=== PATIENT | male | born 1990 ===

== ENCOUNTER 2020-10-18 10:44 | Emergency (ER) | payer OTHER, SELFPAY ==
[2020-10-18] VITALS (14 sets, daily range): BP systolic 172–209; BP diastolic 100–142; PULSE 85–95; RESP 13–25; TEMP 36.6; O2SAT 95–99; BMI 34.4
--- NOTE | 2020-10-18 11:15 | DI.RAD.S_ITS ---
PROCEDURE: XR CHEST 1V INDICATIONS: chest pain TECHNIQUE: One view of the chest was acquired. COMPARISON: None. FINDINGS: Surgical changes and devices: None. Lungs and pleura: Lungs are clear. No pleural effusions or pneumothorax. Mediastinum: Mediastinal contours appear normal. Heart size is normal. Bones and chest wall: No suspicious bony lesions. Overlying soft tissues appear unremarkable. IMPRESSION: No acute cardiopulmonary disease process. Dictated by: Debbi Damon MD, PhD on 10/18/2020 at 11:40 Approved by: Debbi Damon MD, PhD on 10/18/2020 at 11:40
[2020-10-18 11:48] LABS: Add Manual Diff / Slide Review NO; Basophils Absolute Auto 0 /uL (0-100); Basophils Percent Auto 0.4 % (0-2); Eosinophils Absolute Auto 100 /uL (0-450); Eosinophils Percent Auto 1.1 % (2-4); Hematocrit 42.5 % (41-53); Hemoglobin 14.5 g/dL (13.5-17.5); Lymphocytes Absolute Auto 2700 /uL (1100-4500); Lymphocytes Percent Auto 37.7 % (25-40); Mean Corpuscular HGB Conc 34.2 % (30-36); Mean Corpuscular Hemoglobin 28.6 PG (26-34); Mean Corpuscular Volume 83.9 fL (80-100); Monocytes Absolute Auto 500 /uL (0-900); Monocytes Percent Auto 6.7 % (3-14); Neutrophils Absolute Auto 3900 /uL (1500-7000); Neutrophils Percent Auto 54.1 % (50-75); Platelet Count 277 X10^3/uL (150-400); Red Blood Cell Count 5.07 X10^6/uL (4.5-5.9); Red Cell Distribution Width 12.5 % (11.6-14.8); White Blood Cell Count 7.2 X10^3/uL (4.5-11.0)
[2020-10-18 11:58] LABS: Alanine Aminotransferase 49 IU/L (<50); Albumin 4.9 g/dL (3.5-5.0); Albumin Globulin Ratio 1.6 (1.0-2.8); Alkaline Phosphatase 66 U/L (38-126); Aspartate Aminotransferase 40 IU/L (17-59); BUN Creatinine Ratio 24.7 (6-22); Bilirubin Total 0.5 mg/dL (0.2-1.3); Blood Urea Nitrogen 23 mg/dL (9-20); Calcium 9.7 mg/dL (8.4-10.2); Carbon Dioxide 25 mmol/L (22-32); Chloride 106 mmol/L (98-107); Creatine Kinase 159 U/L (55-170); Estimated Glomerular Filt Rate > 60.0 mL/min (>60); Globulin 3.1 g/dL (1.7-4.1); Glucose 98 mg/dL (70-100); HEMOLYSIS < 15 (0-50); Lipase 76 U/L (23-300); Potassium 4.2 mmol/L (3.4-5.1); Sodium 141 mmol/L (137-145)
[2020-10-18 12:09] LABS: Troponin I < 0.012 ng/mL (0.01-0.034)
[2020-10-18 12:14] LABS: CKMB % Relative Index 0.7 % (1.5-5.0); Creatine Kinase MB 1.12 ng/mL (<2.37)
--- NOTE | 2020-10-18 13:20 | PC.NURSE ---
Pt has no physical symptoms at this time. BP when initially put on the monitor is 179/110. Pt and his are concerned that his 70 mg of daily Losartan are not enough for his HTN and would like him to be started on additional meds.
[2020-10-18] MEDS: AMLODIPINE 5 MG TABLET PO (15:01)
[2020-10-18] MEDS: IBUPROFEN 400 MG TABLET 800 MG PO (16:42)
--- NOTE | 2020-10-18 22:02 | ED_ITS ---
HPI - General Adult <Kaylin Proctor PA-C - Last Filed: 10/18/20 22:18> General Chief complaint: Hypertension Stated complaint: High Blood Pressure Time Seen by Provider: 10/18/20 14:13 Source: patient Mode of arrival: Ambulatory Limitations: no limitations History of Present Illness HPI narrative: 30-year-old male PMH HTN who presents to the ER complaining of high blood pressure and sent from his primary clinic. States that he has battled high blood pressure for last couple of years, intermittently has headaches, in about 3 years ago required hospitalization for refractory hyperten mansi. States he is seen by his primary clinic who have not been managing his medications though he states they are not working for him. Today he denies chest pain, shortness of breath, vision change, dizziness, weakness, numbness, or any other additional symptoms. Related Data Previous Rx's Medication Instructions Recorded amlodipine 5 mg tablet 5 mg PO DAILY #30 tab 10/18/20 Allergies Allergy/AdvReac Type Severity Reaction Status Date / Time No Known Drug Allergies Allergy Verified 10/18/20 11:14 Review of Systems <Kaylin Proctor PA-C - Last Filed: 10/18/20 22:18> Review of Systems Narrative: General: denies fever, chills Head/Neck: denies headache, neck pain Eyes: denies visual changes, eye pain Cardio: denies chest pain, palpitations Respiratory: denies shortness of breath, cough GI: denies abdominal pain, nausea, vomiting, or diarrhea : denies dysuria, hematuria MSK: denies joint pain, muscle weakness Skin: denies rash, itching Neuro: denies numbness, tingling Patient History <Kaylin Proctor PA-C - Last Filed: 10/18/20 22:18> tobacco type: smokeless tobacco alcohol intake frequency: holidays/special occasions only Substance Use Type: does not use Exam <Kaylin Proctor PA-C - Last Filed: 10/18/20 22:18> Narrative Exam Narrative: Independently reviewed vitals signs and nursing notes. General: Awake, alert, nontoxic, no cardiorespiratory distress Head/Neck: Atraumatic, neck full range of motion Eyes: EOMI, conjunctiva normal, PERRLA Nose: nares patent, no rhinorrhea Cardio: Regular rate and rhythm, no peripheral edema Respiratory: CTAB unlabored without wheezing, stridor, or rales. No retractions. GI: Abdomen soft, nontender MSK: Moves all extremities, neurovascularly intact Skin: Normal capillary refill, no rash Neuro: Normal speech and cognition, normal gait, nonfocal neurological exam Initial Vital Signs Initial Vital Signs: Vital Signs Temperature 97.8 F 10/18/20 11:08 Pulse Rate 89 10/18/20 11:08 Respiratory Rate 18 10/18/20 11:08 Blood Pressure 209/142 H 10/18/20 11:08 Pulse Oximetry 99 10/18/20 11:08 <Wayne Nation MD - Last Filed: 12/14/20 07:42> Initial Vital Signs Initial Vital Signs: Vital Signs Temperature 97.8 F 10/18/20 11:08 Pulse Rate 89 10/18/20 11:08 Respiratory Rate 18 10/18/20 11:08 Blood Pressure 209/142 H 10/18/20 11:08 Pulse Oximetry 99 10/18/20 11:08 Course <Kaylin Proctor PA-C - Last Filed: 10/18/20 22:18> Orders Ordered: Discontinued Medications Amlodipine Besylate (Amlodipine 5 Mg Tablet) 5 mg PO NOW ONE Stop: 10/18/20 14:44 Last Admin: 10/18/20 15:01 Dose: 5 mg Documented by: NNMADI Ibuprofen (Ibuprofen 400 Mg Tablet) 800 mg PO NOW ONE Stop: 10/18/20 16:40 Last Admin: 10/18/20 16:42 Dose: 800 mg Documented by: NNAMDI Vital Signs Vital signs: Vital Signs - 8 hr 10/18/20 14:30 10/18/20 14:31 10/18/20 15:00 Pulse Rate 91 H 89 92 H Respiratory Rate 21 23 Blood Pressure 185/115 H Pulse Oximetry 97 96 95 10/18/20 15:01 10/18/20 15:30 10/18/20 15:31 Pulse Rate 92 H 89 91 H Respiratory Rate 22 18 Blood Pressure 184/104 H 172/102 H Pulse Oximetry 95 96 97 10/18/20 16:00 10/18/20 16:30 10/18/20 16:31 Pulse Rate 95 H 87 88 Respiratory Rate 13 23 Blood Pressure 174/109 H 182/105 H Pulse Oximetry 95 95 96 <Wayne Nation MD - Last Filed: 12/14/20 07:42> Orders Ordered: Discontinued Medications Amlodipine Besylate (Amlodipine 5 Mg Tablet) 5 mg PO NOW ONE Stop: 10/18/20 14:44 Last Admin: 10/18/20 15:01 Dose: 5 mg Documented by: NNAMDI Ibuprofen (Ibuprofen 400 Mg Tablet) 800 mg PO NOW ONE Stop: 10/18/20 16:40 Last Admin: 10/18/20 16:42 Dose: 800 mg Documented by: NNAMDI Vital Signs Vital signs: Vital Signs - 8 hr 10/18/20 14:30 10/18/20 14:31 10/18/20 15:00 Pulse Rate 91 H 89 92 H Respiratory Rate 21 23 Blood Pressure 185/115 H Pulse Oximetry 97 96 95 10/18/20 15:01 10/18/20 15:30 10/18/20 15:31 Pulse Rate 92 H 89 91 H Respiratory Rate 22 18 Blood Pressure 184/104 H 172/102 H Pulse Oximetry 95 96 97 10/18/20 16:00 10/18/20 16:30 10/18/20 16:31 Pulse Rate 95 H 87 88 Respiratory Rate 13 23 Blood Pressure 174/109 H 182/105 H Pulse Oximetry 95 95 96 Medical Decision Making <Kaylni Proctor PA-C - Last Filed: 10/18/20 22:18> Lab Data Result diagrams: 10/18/20 11:33 10/18/20 11:33 Labs: Lab Results 10/18/20 10/18/20 Range/Units 11:33 11:33 WBC 7.2 (4.5-11.0) X10^3/uL RBC 5.07 (4.5-5.9) X10^6/uL Hgb 14.5 (13.5-17.5) g/dL Hct 42.5 (41-53) % MCV 83.9 (80-100) fL MCH 28.6 (26-34) PG MCHC 34.2 (30-36) % RDW 12.5 (11.6-14.8) % Plt Count 277 (150-400) X10^3/uL Neut % (Auto) 54.1 (50-75) % Lymph % (Auto) 37.7 (25-40) % Centre % (Auto) 6.7 (3-14) % Eos % (Auto) 1.1 L (2-4) % Baso % (Auto) 0.4 (0-2) % Neut # (Auto) 3900 (1500-5241) /uL Lymph # (Auto) 2700 (4846-7104) /uL Centre # (Auto) 500 (0-900) /uL Eos # (Auto) 100 (0-450) /uL Baso # (Auto) 0 (0-100) /uL Sodium 141 (137-145) mmol/L Potassium 4.2 (3.4-5.1) mmol/L Chloride 106 (98-107) mmol/L Carbon Dioxide 25 (22-32) mmol/L BUN 23 H (9-20) mg/dL Creatinine 0.93 (0.66-1.25) mg/dL Estimated GFR > 60.0 (>60) mL/min BUN/Creatinine Ratio 24.7 H (6-22) Glucose 98 (70-100) mg/dL Calcium 9.7 (8.4-10.2) mg/dL Total Bilirubin 0.5 (0.2-1.3) mg/dL AST 40 (17-59) IU/L ALT 49 (<50) IU/L Alkaline Phosphatase 66 (38-126) U/L Total Creatine Kinase 159 (55-170) U/L CK-MB (CK-2) 1.12 (<2.37) ng/mL CK-MB (CK-2) Rel Index 0.7 L (1.5-5.0) % Troponin I < 0.012 (0.01-0.034) ng/mL Total Protein 8.0 (6.3-8.2) g/dL Albumin 4.9 (3.5-5.0) g/dL Globulin 3.1 (1.7-4.1) g/dL Albumin/Globulin Ratio 1.6 (1.0-2.8) Lipase 76 (23-300) U/L Imaging Data Chest x-ray: Radiologist's Impression: PROCEDURE:? XR CHEST 1V ? INDICATIONS:? chest pain ? TECHNIQUE:? One view of the chest was acquired.? ? COMPARISON:? None. ? FINDINGS:? ? Surgical changes and devices:? None.? ? Lungs and pleura:? Lungs are clear.? No pleural effusions or pneumothorax.? ? Mediastinum:? Mediastinal contours appear normal.? Heart size is normal.? ? Bones and chest wall:? No suspicious bony lesions.? Overlying soft tissues appear unremarkable.? ? IMPRESSION:? No acute cardiopulmonary disease process. ? ? Dictated by: Debbi Damon MD, PhD on 10/18/2020 at 11:40 ? ? Approved by: Debbi Damon MD, PhD on 10/18/2020 at 11:40 ? ECG Data Interpretation: EKG independently reviewed by ED attending physician reveals normal sinus rhythm at 74 bpm with regular axis and intervals. Findings of benign early repolarization. No STEMI, ST segment changes, arrhythmia, or acute ischemic changes. MDM Narrative Medical decision making narrative: 30 yo male PMH HTN sent by PCP clinic for elevated blood pressure for hypertensive emergency rule out. Initially hypertensive 209/142 at triage, denying symptoms. Improved after rest to 179/114 and to 182/105 amlodipine. A workup to include CBC, CMP, troponin, CK, lipase unremarkable for acute abnormality. Chest x-ray unremarkable. EKG without s igns of ischemia or arrhythmia with benign early repolarization. BP improved with oral medications and patient has been discharged with these medications. Encouraged him to measure blood pressures daily and close follow-up with primary care physician for medication management. No evidence of hypertensive emergency or acute neurologic, cardiac, renal, or pulmonary etiology. Patient is appropriate and amenable to discharge home. Vital signs are stable on repeat examination is unremarkable. Patient has been informed of results. Patient has been given strict return to ER precautions for any new or worsening symptoms. Patient understands to follow up closely with outpatient providers as i nstructed. Patient understands plan and agrees to discharge home. All questions and concerns answered at this time. <Wayne Nation MD - Last Filed: 12/14/20 07:42> Lab Data Labs: Lab Results 10/18/20 10/18/20 Range/Units 11:33 11:33 WBC 7.2 (4.5-11.0) X10^3/uL RBC 5.07 (4.5-5.9) X10^6/uL Hgb 14.5 (13.5-17.5) g/dL Hct 42.5 (41-53) % MCV 83.9 (80-100) fL MCH 28.6 (26-34) PG MCHC 34.2 (30-36) % RDW 12.5 (11.6-14.8) % Plt Count 277 (150-400) X10^3/uL Neut % (Auto) 54.1 (50-75) % Lymph % (Auto) 37.7 (25-40) % Centre % (Auto) 6.7 (3-14) % Eos % (Auto) 1.1 L (2-4) % Baso % (Auto) 0.4 (0-2) % Neut # (Auto) 3900 (8019-3840) /uL Lymph # (Auto) 2700 (5523-3362) /uL Centre # (Auto) 500 (0-900) /uL Eos # (Auto) 100 (0-450) /uL Baso # (Auto) 0 (0-100) /uL Sodium 141 (137-145) mmol/L Potassium 4.2 (3.4-5.1) mmol/L Chloride 106 (98-107) mmol/L Carbon Dioxide 25 (22-32) mmol/L BUN 23 H (9-20) mg/dL Creatinine 0.93 (0.66-1.25) mg/dL Estimated GFR > 60.0 (>60) mL/min BUN/Creatinine Ratio 24.7 H (6-22) Glucose 98 (70-100) mg/dL Calcium 9.7 (8.4-10.2) mg/dL Total Bilirubin 0.5 (0.2-1.3) mg/dL AST 40 (17-59) IU/L ALT 49 (<50) IU/L Alkaline Phosphatase 66 (38-126) U/L Total Creatine Kinase 159 (55-170) U/L CK-MB (CK-2) 1.12 (<2.37) ng/mL CK-MB (CK-2) Rel Index 0.7 L (1.5-5.0) % Troponin I < 0.012 (0.01-0.034) ng/mL Total Protein 8.0 (6.3-8.2) g/dL Albumin 4.9 (3.5-5.0) g/dL Globulin 3.1 (1.7-4.1) g/dL Albumin/Globulin Ratio 1.6 (1.0-2.8) Lipase 76 (23-300) U/L Discharge Plan Departure Patient Disposition: Home Clinical Impression: Hypertension Instructions: DI for High Blood Pressure Activity Restrictions/Additional Instructions: *You have been diagnosed with [hypertension] *What to do: [X] New medication prescriptions sent to your pharmacy: [[facility]] [ ] New medication written as a paper prescription [ ] No new medications given * Please follow-up with your primary care provider in 2-3 days, call for an appointment. Let them know you were seen in the emergency department and that we ask you to be seen in follow-up. * if you do not have a primary care provider, please contact the [facility] Resource line at [phone]. They will ask some questions about your medical history and help to get up with a doctor in the community. * Return to the if you should have any new, worsening, or concerning symptoms, such as [headache, chest pain, dizziness]. Prescriptions: New amlodipine 5 mg tablet 5 mg PO DAILY Qty: 30 RF: 0
== END 2020-10-18 16:49 | disposition home or self-care (01) ==
PROVIDERS: Emergency Medicine; Emergency Provider Physician Assistant
DX: I10 Essential (primary) hypertension (principal); R07.9 Chest pain, unspecified
CPT/HCPCS: 36415; 71045; 80053; 82550; 82553; 83690; 84484; 85025; 93005; 99284